=== PATIENT | female | born 1980 | race Caucasian/White ===

== ENCOUNTER 2016-07-13 21:31 | Emergency (ER) | payer OTHER, MEDICAID ==
[~2016-07-13] VITALS: Ht 162.6 cm; Wt 97.3 kg
[~2016-07-13 21:31] MED LIST: BUPR100T4 PO; CYCL-375 PO; DICL75TA5 PO; ESCI20TA PO; LISD40CA4 PO; NICO1PAT16 TOP; ZINC50TA64 PO
--- OUTSIDE RECORDS SUMMARY | 2016-07-13 21:39 | XMS REPORT | Referral Summary ---
Author Author [facility] Organization [facility] [place] Address Unknown Phone Unavailable Care Team Providers Care Director Of Sustainability Name Role Phone Isa Leny Primary Care Physician [phone] Encounter Date(s): 10/30/14 - 10/30/14 [facility] [place] [address] [place], [place] [address] Discharge Diagnosis: Excessive sleepiness Discharge Diagnosis: Shifting sleep-work schedule Discharge Disposition: 01-Home or Self Care Attending Physician: Amando Bess MD Admitting Physician: Amando Bess MD Vital Signs Most recent to 1 oldest [Reference Range]: Peripheral Pulse 98 bpm Rate [60-100 bpm] (10/30/14 11:10 AM) Blood Pressure 110/68 mmHg [90-140/60-90 mmHg] (10/30/14 11:10 AM) SpO2 98 % (10/30/14 11:10 AM) Problem List Condition Effective Dates Status Health Status Informant Attention deficit Active hyperactivity disorder, 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) Obesity(Confirmed) Active patient Tobacco Active patient user(Confirmed) Allergies, Adverse Reactions, Alerts No Known Medication Allergies Medications buPROPion 100 mg oral tablet 100 mg 1 tabs, Oral, BID, # 180 tabs, 0 Refill(s) Start Date: 10/30/14 Status: Ordered cyclobenzaprine 10 mg oral tablet 10 mg 1 tabs, Oral, TID, as needed for spasm, # 30 tabs, 0 Refill(s) Start Date: 10/30/14 Status: Ordered diclofenac sodium 75 mg oral delayed release tablet 0 Refill(s) Start Date: 10/30/14 Status: Ordered escitalopram 20 mg oral tablet 20 mg 1 tabs, Oral, Daily, # 30 tabs, 0 Refill(s) Start Date: 10/30/14 Status: Ordered Provigil 200 mg oral tablet 200 mg 1 tabs, Oral, qAM, # 30 tabs, 0 Refill(s) Start Date: 04/22/15 Status: Ordered Vyvanse 40 mg oral capsule 40 mg 1 caps, Oral, qAM, 0 Refill(s) Start Date: 10/30/14 Status: Ordered Zinc 100 mg, Oral, Daily, 0 Refill(s) Start Date: 10/30/14 Status: Ordered Zoloft 50 mg, Oral, Daily, 0 Refill(s) Start Date: 04/22/15 Status: Ordered Results No data available for this section Immunizations No data available for this section Procedures No data available for this section Social History Social History Type Response Smoking Status Current some day smoker; Tobacco use per day: Less than Pack; Number of years: 18 Assessment and Plan Extracted from: Title: Office Visit Note Author: Amando Bess Date: 10/30/14 Assessment/Plan 1.Excessive sleepiness 2.Shifting sleep-work schedule - Severe excessive sleepiness. - Most likely cause is her shift work. - Recommend PSG to rule out SHAWN. - Due to her irregular sleep schedule, an MSLT is unlikely to provide information that would cash management specialist and is likely to be abnormal due to circadian REM pressures. Essentially we could get a false positive for narcolepsy under the circumstances. - Patient has a 2 hours commute, which limits her ability to get adequate sleep in her work days. - Patient advised to avoid driving and other potentially harmful activities if feeling sleepy, drowsy or otherwise impaired. Countermeasures such as pulling over to nap and napping before driving discussed. 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 - Follow up 1-2 weeks after the test. - Pre-test probability for SHAWN is low.
--- OUTSIDE RECORDS SUMMARY | 2016-07-13 21:39 | XMS REPORT | Referral Summary ---
Author Author [facility] Organization [facility] [place] Address Unknown Phone Unavailable Care Team Providers Care Delivery Route Driver Name Role Phone MossLeny Primary Care Physician [phone] Encounter Date(s): 01/12/15 - 01/12/15 [facility] [place] [address] [place], [place] [address] Discharge Diagnosis: Sleep disorder, shift work Discharge Diagnosis: Hypersomnia Discharge Disposition: 01-Home or Self Care Attending Physician: Amando Bess MD Admitting Physician: Amando Bess MD Vital Signs Most recent to 1 oldest [Reference Range]: Peripheral Pulse 92 bpm Rate [60-100 bpm] (01/12/15 11:44 AM) Blood Pressure 112/66 mmHg [90-140/60-90 mmHg] (01/12/15 11:44 AM) SpO2 98 % (01/12/15 11:44 AM) Problem List Condition Effective Dates Status Health Status Informant Attention deficit Active hyperactivity disorder, predominantly inattentive type (disorder)(Confirmed ) Obesity(Confirmed) Active patient Tobacco Active patient user(Confirmed) [...] 0 Refill(s) Start Date: 10/30/14 Status: Ordered Vyvanse 40 mg oral capsule 40 mg 1 caps, Oral, qAM, 0 Refill(s) Start Date: 10/30/14 Status: Ordered Zinc 100 mg, Oral, Daily, 0 Refill(s) Start Date: 10/30/14 Status: Ordered Results No data available for this section Immunizations No data available for this section Procedures No data available for this section Social History Social History Type Response Smoking Status Current some day smoker; Tobacco use per day: Less than Pack; Number of years: 18 Assessment and Plan Extracted from: Title: Office Visit Note Author: Amando Bess Date: 01/12/15 MD Assessment/Plan 1.Sleep disorder, shift work 2.Hypersomnia - No evidence of sleep apnea. - Given current 3rd shift work, decreased TST due to long commute, and sleepiness on days off and medications patient is taking, a PSG/MSLT is unlikely to exchange clerk. - Recommend starting Nuvigil, avoid taking in conjunction with Vyvanse unless for safety reasons. - Discussed common and serious side effects of Nuvigil. - Follow up 4 weeks. - Patient advised to avoid driving and other potentially harmful activities if feeling sleepy, drowsy or otherwise impaired. Countermeasures such as pulling over to nap and napping before driving discussed.
--- OUTSIDE RECORDS SUMMARY | 2016-07-13 21:39 | XMS REPORT | CCD ---
Author Author [facility] Organization Unknown Address [address] [place] [phone] Phone 0 Care Team Providers Care Superintendent Compressor Stations Name Role Phone Haile SEXTON Attending Physician 0 Vital Signs Unknown. Allergies Allergy Code Allergy Type Reaction Status No Known Drug Allergies 0 No known drug allergies Active Procedures Unknown. History of Immunizations Unknown. Problems Unknown. Results Unknown. Medications Unknown. Medications Administered Unknown. Encounters Unknown. Social History Smoking Status Code Start Date End Date Former smoker [id number] Patient Decision Aids Unknown. Instructions You were admitted to [facility] on 05/06/2013. You were discharged from [facility] on 05/06/2013. Should you have any questions prior to discharge, please contact a member of your healthcare team. If you have left the hospital and have any questions, please contact your primary care physician. Chief Complaint and Reason For Visit Chief Complaint Date of Onset XRAY LT KNEE Function Status Unknown. Plan of Care Unknown. Referral/Transition of Care Unknown.
--- OUTSIDE RECORDS SUMMARY | 2016-07-13 21:39 | XMS REPORT | Referral Summary ---
Author Author [facility] Organization [facility] [place] Address Unknown Phone Unavailable Care Team Providers Care Ham Rolling Machine Operator Name Role Phone Isa Leny Primary Care Physician [phone] Encounter VC Date(s): 12/08/14 - 12/08/14 [facility] [place] [address] [place], [place] [address] Discharge Disposition: 01-Home or Self Care Attending Physician: Amando Bess MD Admitting Physician: Amando Bess MD Vital Signs No data available for this section Problem List Condition Effective Dates Status Health [...] Number of years: 18 Assessment and Plan No data available for this section
--- OUTSIDE RECORDS SUMMARY | 2016-07-13 21:39 | XMS REPORT | Continuity Of Care Document ---
Author Author [facility] Organization [facility] Address [address] [place] [address] Phone Care Team Providers Care Manager Chemistry Name Role Phone GUIDO AVALOS MD AT Results Microbiology Results Visit/Account #[id number] (October 16, 2014 10:38am - October 16, 2014 12:23pm) Procedure Result WOUND CULTURE WOUND CULTURE 95810-2: WOUND GRAM STAIN 36625-0: WOUND GRAM STAIN Result Instance On October 16, 2014 11:00am Source: LEG Result Prompts: WBC/HPF 0-1 BACTERIA SEEN 4+ MIXED DELVIN COMMENTS PREDOMINANTLY GRAM POSITIVE COCCI Allergies and Adverse Reactions Allergies and Adverse Reactions Patient Unit Number: [id number] Agent Type Reaction Severity Status NO KNOWN ALLERGIES Drug Allergy Unknown Unknown Active Problem List Problem List Visit/Account #[id number] (October 16, 2014 10:38am - October 16, 2014 12:23pm) Acute Problems: Code/Condition Comments Documented Start Date Documented Resolved Date Code (s) Open wound of lower extremity ICD10: S81.809A Open wound of lower extremity ICD9: 891.0 Open wound of lower extremity SNOMED: 80322030 Open wound of lower extremity Open wound of lower extremity ICD10: S81.809A Open wound of lower extremity ICD9: 891.0 Open wound of lower extremity SNOMED: 98765533 Open wound of lower extremity Plan of Care Plan Of Care Visit/Account #[id number] (October 16, 2014 10:38am - October 16, 2014 12:23pm) Patient Instructions Take the Keflex and Bactrim as directed. Followup with Dr. Mosqueda. Call his office for appointment. Keep the wound covered. Return to emergency department as needed. Vital Signs Vital Signs Visit/Account #[id number] (October 16, 2014 10:38am - October 16, 2014 12:23pm) Sign First Result Last Result Code(s) Body Mass Index Body Mass Index (BMI): 29.0 kg/m2 On October 16, 2014 10:34am 04090-0 BMI (body mass index) Body Mass Index as a Calculated Value 29.1 kg/m2 On October 16, 2014 10:34am 80699-1 BMI (body mass index) Body Surface Area as a Calculated Value 1.82 m2 On October 16, 2014 10:34am 3140-1 BSA (body surface area) Height (Feet/Inches) 5 [ft_us] 4 [in_us] On October 16, 2014 10:34am Temperature in Fahrenheit Temperature (Fahrenheit): 98.4 [degF] On October 16, 2014 10:34am Temperature (Fahrenheit): 98.3 [degF] On October 16, 2014 12:21pm 8310-5 Body Temperature Weight in Kilograms Weight (Kilograms): 77 kg On October 16, 2014 10:34am 3141-9 Weight Measured 33912-2 Body weight measured in kilograms Functional Status Functional and Cognitive Status No Functional Status Data Medications Discharge Medications - Medications that patient should continue to take. Review with physician Visit/Account #[id number] (October 16, 2014 10:38am - October 16, 2014 12:23pm) Medication Route Sig/Schedule Precondition/Indication Comments/Instructions Codes BACTRIM DS 160-800(TRIMETHOPRIM/SULFAMETHOXAZOLE) 1 TAB TABLET Dose: 1 TAB ORAL TWICE A DAY Sulfamethoxazole 800 MG / Trimethoprim 160 MG Oral Tablet (RxNorm): 326168 BACTRIM DS 160-800 (TRIMETHOPRIM/SULFAMETHOXAZOLE) NDC: 01372374290 Keflex(CEPHALEXIN MONOHYDRATE) 500 MG CAPSULE Dose: 500 MG ORAL 4 TIMES DAILY Cephalexin 500 MG Oral Capsule (RxNorm): 239732 Keflex (CEPHALEXIN MONOHYDRATE) NDC: 92405274461 History Of Encounters Encounters Visit/Account #[id number] (October 16, 2014 10:38am - October 16, 2014 12:23pm) Account Status Physican Of Record Reason For Visit Visit Diagnosis Start Date/Time Stop Date/Time ER GUIDO AVALOS MD LLE WOUND Not Available Oct 16, 2014 10:38am Oct 16, 2014 12:23pm History of Procedures Procedure List No procedures recorded. Discharge Instructions Discharge Instructions Visit/Account #[id number] (October 16, 2014 10:38am - October 16, 2014 12:23pm) DISCHARGE INSTRUCTIONS Physician Documentation Social History Social History No Social History Data. Immunizations Immunizations Patient Unit Number: [id number] Immunizations No immunizations recorded.
--- OUTSIDE RECORDS SUMMARY | 2016-07-13 21:39 | XMS REPORT | Referral Summary ---
Author Author [facility] Organization [facility] [place] Address Unknown Phone Unavailable Care Team Providers Care Senior Mortgage Loan Processor Name Role Phone Isa Leny Primary Care Physician [phone] Encounter Date(s): 04/22/15 - 04/22/15 [facility] [place] [address] [place], [place] [address] Discharge Diagnosis: Shift work sleep disorder Discharge Disposition: 01-Home or Self Care Attending Physician: Amando Bess MD Admitting Physician: Amando Bess MD Vital Signs Most recent to 1 oldest [Reference Range]: Peripheral Pulse 103 bpm Rate [60-100 bpm] *HI* (04/22/15 1:34 PM) Blood Pressure 112/78 mmHg [90-140/60-90 mmHg] (04/22/15 1:34 PM) SpO2 98 % (04/22/15 1:34 PM) Problem List Condition Effective Dates Status Health [...]
--- OUTSIDE RECORDS SUMMARY | 2016-07-13 21:39 | XMS REPORT | Continuity of Care Document ---
Demographics Preferred Language Unknown Marital Status Unknown Hinduism Affiliation Unknown Race Unknown Ethnic Group Unknown Author Author [facility] Organization [facility] Address Unknown Phone Unavailable Allergies Active Description Code Type Severity Reaction Onset Reported/Identified Relationship to Patient Clinical Status Yes No Known Drug Allergies 168061 3 N/A N/A 02/08/1121 Yes No Allergy Information Available [id number] Drug Allergy Unknown N/A 02/08/2015 Yes No Known Drug Allergies [id number] Drug Allergy Unknown N/ A 03/23/2015 Medications Problems Date Dx Coded Attending Type Code Diagnosis Diagnosed By 02/09/2015 EUGENIE GUTIERREZ, SHAINA Louis Ot K61.1 03/24/2015 SHAINA TRAORE MD Ot K60.3 Procedures Results Encounters ACCT No. Visit Date/Time Discharge Status Pt. Type Provider Facility Loc./Unit Complaint [id number] 05/20/2013 11:52:00 [facility] Unknown [id number] 05/12/2013 09:01:00 [facility] Unknown
--- OUTSIDE RECORDS SUMMARY | 2016-07-13 21:39 | XMS REPORT | Referral Summary ---
Author Author [facility] [employer] Organization [facility] [place] Address Unknown Phone Unavailable Care Team Providers Care Water Pollution Control Inspector Name Role Phone Leny Moss Primary Care Physician [phone] Encounter Date(s): 04/21/16 - 04/21/16 [facility] [place] [address] [place] [address]- Discharge Disposition: 01-Home or Self Care Attending Physician: Amando Bess MD Admitting Physician: Amando Bess MD Vital Signs Most recent to 1 oldest [Reference Range]: Peripheral Pulse 98 bpm Rate [60-100 bpm] (04/21/16 11:55 AM) Blood Pressure 122/76 mmHg [90-140/60-90 mmHg] (04/21/16 11:55 AM) SpO2 98 % (04/21/16 11:55 AM) Problem List Condition Effective Dates Status [...] 0 Refill(s) Start Date: 10/30/14 Status: Ordered Nuvigil 250 mg oral tablet 250 mg 1 tabs, Oral, Daily, # 30 tabs, 5 Refill(s) Start Date: 04/21/16 Status: Ordered Vyvanse 40 mg oral capsule [...]
--- OUTSIDE RECORDS SUMMARY | 2016-07-13 21:39 | XMS REPORT | CCD ---
Author Author [facility] Organization Unknown Address [address] [place] [phone] Phone 0 Care Team Providers Care Svp Business Development Name Role Phone Haile SEXTON Attending Physician 0 Vital Signs Unknown. Allergies Allergy Code Allergy Type Reaction Status No Known Drug Allergies 0 No known drug allergies Active Procedures Unknown. History of Immunizations Unknown. Problems Unknown. Results Unknown. Medications Unknown. Medications Administered Unknown. Encounters Unknown. Social History Smoking Status Code Start Date End Date Former smoker 1880692 Patient Decision Aids Unknown. Instructions You were admitted to [facility] on 05/13/2013. You were discharged from [facility] on 05/13/2013. Should you have any questions prior to discharge, please contact a member of your healthcare team. If you have left the hospital and have any questions, please contact your primary care physician. Chief Complaint and Reason For Visit Chief Complaint Date of Onset MRI LOW EXT JNT WO CONTR LT KNEE Function Status Unknown. Plan of Care Unknown. Referral/Transition of Care Unknown.
--- OUTSIDE RECORDS SUMMARY | 2016-07-13 21:39 | XMS REPORT | Referral Summary ---
Author Author [facility] Organization [facility] [place] Address Unknown Phone Unavailable Care Team Providers Care C4 Planner Name Role Phone Isa Leny Primary Care Physician [phone] Encounter Date(s): 12/08/14 - 12/08/14 [facility] [place] [address] [place], [place] [address] Discharge Diagnosis: Other dyspnea and respiratory abnormality Discharge Diagnosis: Hypersomnia, unspecified Discharge Disposition: 01-Home or Self Care Attending [...] 1 tabs, Oral, qAM, # 30 tabs, 2 Refill(s), called to pharmacy (Rx) Start Date: 05/17/15 Status: Ordered Vyvanse 40 mg oral capsule [...]
--- OUTSIDE RECORDS SUMMARY | 2016-07-13 21:43 | XMS REPORT | Continuity of Care Document ---
Demographics Preferred Language Unknown Marital Status Unknown Adventist Affiliation Unknown Race Unknown Ethnic Group Unknown Author Author [facility] Organization [facility] Address Unknown Phone Unavailable Allergies Active Description Code Type Severity Reaction Onset Reported/Identified Relationship to Patient Clinical Status Yes No Known Drug Allergies 230319 3 N/A N/A 02/08/1121 Yes No Allergy Information Available [id number] Drug Allergy Unknown N/A 02/08/2015 Yes No Known Drug Allergies [id number] Drug Allergy Unknown N/ A 03/23/2015 Medications Problems Date Dx Coded Attending Type Code Diagnosis Diagnosed By 02/09/2015 EUGENIE GUTIERREZ, SHAINA Louis Ot K61.1 03/24/2015 SHAINA TRAORE MD Ot K60.3 Procedures Results Encounters ACCT No. Visit Date/Time Discharge Status Pt. Type Provider Facility Loc./Unit Complaint [id number] 05/20/2013 11:52:00 [facility] Unknown [id number] 05/12/2013 09:01:00 [facility] Unknown
[2016-07-13 21:45] VITALS: Ht 162.6 cm; Wt 97.3 kg
--- NOTE | 2016-07-13 21:58 | ERPDOC ---
Departure Disposition Decision Date: July 13, 2016 Disposition Decision Time: 22:16 Disposition: 01 DISCHARGED HOME, SELF-CARE Impression Impression Impression: Primary Impression: Perirectal abscess Severity: Moderate Condition: Stable Seen By: Mid-level only Referrals: DANIKA HERNÁNDEZ APRN (PCP) Patient Instructions: Abscess (ED) Problems/Meds/Labs Reviewed?: Yes Medications reviewed and manag: Yes Additional Instructions: Take the Clindamycin as prescribed. Use the [place] as needed for pain. I do want you to contact your surgeons office in the morning and schedule an appointment for follow up. If this should become bigger or more painful then return to [facility] for reevaluation. Follow up care ordered?: Yes Mental Status: Alert Scripts Hydrocodone/Acetaminophen ([place] 5-325 Tablet) 5-325 Tablet 1 TAB PO Q6H Y for PAIN, #10 TAB 0 Refills Prov: GOLDEN BERNAL APRN 07/13/16 Clindamycin HCl (Clindamycin HCl) 150 Mg Capsule 1 CAP PO TID, #60 CAP 0 Refills TAKE WITH A FULL GLASS OF WATER TO AVOID ESOPHAGEAL IRRITATION. 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 Last one was March of 2015. She started having pain in the left buttock/perirectal region for the last 24 hours. She has not had any fever or chills. Does see a surgeon in [place] that comes once per week. Occurred At: home Onset: Gradual Duration: other (Over the last 24 hours) Severity: moderate Associated Symptoms: DENIES: chest pain, cough, diaphoresis, fever/chills, headaches, loss of appetite, malaise, nausea/vomiting, rash, seizure, shortness of breath, syncope, weakness Hx of Similar Symptoms: No Allergies: Coded Allergies: No Known Allergies (Unverified , 09/02/14) Past History Past Medical History GI: other Psychological: anxiety, depression Surgical History General: other Family History Family History: Negative Vaccines Hx Influenza Vaccination: Yes (2013) Social History Smoking Status: Never smoker Substance Use Type: does not use Alcohol Intake: none Sexuality: male partner Review of Systems Constitutional Constitutional: DENIES: chills, dizziness, fatigue, fever, weakness GI Upper Abdomen: DENIES: nausea, pain, vomiting Lower Abdomen: DENIES: constipation, diarrhea, pain General: DENIES: dysuria, frequency, urgency Integumentary Skin: DENIES: rash Neurological General: DENIES: headache, numbness, tingling, weakness Physical Exam General General Nourishment: well nourished, well developed, appears stated age, no acute distress, adult General Body Habitus: well groomed Vitals and Pain First Documented Vital Signs Date Time Temp Pulse Resp B/P Pulse Ox O2 Delivery O2 Flow Rate FiO2 07/13/16 21:45 98.2 94 18 123/82 97 Room Air Weight: Kilograms: Height (feet): 5 Height (inches): 4 Triage Pain Scale: RN VS reviewed by Provider: Yes Normal Exams: Neck: Full range of motion, without adenopathy, JVD, bruits or thyromegaly Chest/Resp: Clear all chaparro, with good airflow, and symmetry bilaterally CV: Regular rate and rhythm, without murmur or gallop, Pulses 2+ all extremities, capillary refill, <2 seconds all ext., no pedal edema noted Abdomen: Bowel sounds positive, soft, non-tender, non-distended, no hepatosplenomegaly, masses or bruits noted Lymphatic: No lymphadenopathy, or lymphedema noted Integumentary: No rashes, hives, or bruising noted Neurologic: Patient is alert, and oriented Psychiatric: Patient exhibits, appropriate attention, emotion and affect Abdomen Rectal: FOUND: abscess (There is a small perirectal abscess with tenderness and induration and small amount of fluctuance noted. ), sphincter normal tone, NOT FOUND: external hemorrhoids, internal hemorrhoids, thrombosed hemorrhoids 1 - area of abscess Differential Diagnoses Considering: Other (perirectal abscess, hemorrhoid, cellulitis) Procedures Procedures Performed Procedures Performed: Incision & Drainage Incision and Drainage Procedure I&D : Site: left buttock/perirectal region Prep: betadine Anesthetic: 1% Lidocaine Volume of Anesthetic (cc's): 1 Blade Size: #11 Drainage: moderate Culture Obtained?: No Dressing: No Antibiotics: Clindamycin Progress Results/Orders Orders Procedure Category Date Status Time Lidocaine 1% PHA 07/13/16 Complete (Xylocaine 1%) 22:00 Clindamycin (Cleocin) PHA 07/13/16 Complete 22:00 Hydrocodone/Apap PHA 07/13/16 Complete / Prepack ([place] 5 22:00 Medications Current ED Medications Lidocaine HCl (Xylocaine 1%) 100 mg O ONCE INFIL Last administered on t 22:05; Start 07/13/16 at 22:00; Stop 07/13/16 at 22:01; Status DC Clindamycin HCl (Cleocin) 300 mg O ONCE PO ; Start 07/13/16 at 22:00; Stop at 22:01; Status DC Acetaminophen/ Hydrocodone Bitart (NORCO 5 (PrePack)) 1 pack O ONCE SENT HOME ; Start 07/13/16 at 22:00; Stop 07/13/16 at 22:01; Status DC Progress Progress Abscess was drained with good results. Tolerated well. Will have her start on some Clindamycin today. Given her history of frequent issues with her abscesses I did advise that she contact her surgeons office tomorrow and notify him of procedure done in [place]. Will have her start on some Clindamycin tonight as well. [place] as needed for pain. GOLDEN BERNAL APRN July 13, 2016 21:58
[2016-07-13] MEDS ORDERED: LIDOCAINE 1% (10mg/ml) 30ml SDV INFIL ONE (22:00)
[2016-07-13] MEDS ORDERED: HYDROCODONE/APAP 5/325 (PrePack) SENT HOME ONE (22:00)
[2016-07-13] MEDS ORDERED: CLINDAMYCIN 300 MG CAPSULE PO ONE (22:00)
[2016-07-13] MEDS ORDERED: CLIN-89 PO (22:22)
[2016-07-13] MEDS ORDERED: HYDR-4246 PO (22:22)
[2016-07-13 22:32] VITALS: BP 123/82; PULSE 94; RESP 18; TEMP 98.2; O2SAT 97
[2016-07-13] MEDS ORDERED: METH54TA12 PO (22:36)
[2016-07-13] MEDS ORDERED: SERT100T PO (22:36)
[2016-07-13] MEDS ORDERED: ARMO250T3 PO (22:36)
[2016-07-13] MEDS ORDERED: ARIP5TAB10 PO (22:36)
== END 2016-07-13 22:32 | disposition home or self-care (01) ==
LOC: ED 21:31
DX: K61.1 Rectal abscess (principal)